=== PATIENT | female | born 1960 | race Caucasian/White ===

== ENCOUNTER 2025-05-18 12:42 | Emergency (ER) | payer OTHER, SELFPAY ==
[2025-05-18 12:45] VITALS: BP 153/94
[2025-05-18] MEDS: MOTRIN 600 MG PO (13:36)
--- NOTE | 2025-05-18 13:50 | ED.MUSCINJ ---
HPI-Injury
General
Chief Complaint: Musculo-Skeletal Complaint
Time Seen by Provider: 05/18/25 13:23
History of Present Illness-Injury
Initial Injury comments:
Patient is a 64-year-old woman presenting to the emergency department with ankle pain. Patient states that she was sitting in a desk chair with her legs wrapped around the base. The chair slipped forward and her right leg was twisted under the
chair. She not hit her head or lose consciousness. She was unable to stand after the fall given pain to the ankle and the knee. No numbness tingling. No weakness. No pain elsewhere.
Past History
Past History
ED Past Medical History: None
ED Past Surgical History: None
Patient has exhibited threatening behavior?: No
Social History
Living: with family
Employment: Employed
Phy Exam
Physical Exam
Physical Exam:
GENERAL: in no acute distress
HEENT: normocephalic, extraocular movements intact, moist oral mucosa
NECK: normal inspection
RESPIRATORY: no respiratory distress, clear to auscultation bilaterally
CARDIOVASCULAR: regular rate and rhythm
EXTREMITIES: Right lower extremity with tenderness to the medial aspect of the knee as well as the medial malleolus with mild swelling, 2+ distal pulse, normal sensation
NEUROLOGIC: awake and alert, moves all extremities
SKIN: warm
Injury Course
Orders/Labs/Results
Orders:
Orders
05/18/25 12:44
Ankle, Right 3 view CR [CR Ankle - Right Min 3 Views *] Urgent
Comment:
Reason For Exam: injury
05/18/25 13:30
Ibuprofen [Motrin] 600 mg PO NOW STA
CR Knee- Right 4 Or More View* Urgent
Comment:
Reason For Exam: medial tenderness
Procedures
Splint Check
Splint checked by provider?: Yes
Circulation/Movement/Sensation post splint application: brisk cap refill and full sensation
MDM/Problems Addressed
Differential Diagnosis Includes:
Patient is a 64-year-old woman presenting to the emergency department with ankle pain after twisting her ankle and falling. Vitals are notable for hypertension and exam does show tenderness at the medial malleolus of the right leg as well as the
right medial compartment of the knee. Concern for fibular fracture versus knee fracture versus ligamentous injury. X-ray obtained of the ankle prior to my evaluation is consistent with a spiral distal fibular fracture. Per the official read there
could be component of ligamentous injury as well. Will obtain x-ray of the knee. Will pain control.
*Pulse Oximetry
SaO2: 99
Oxygen Mode of Delivery: Room air
Patient hypoxic: no
*Critical Care Note
Total Time (30-74mins, 75-104mins- exclusive of procedures): Not Applicable
Update Note
Update Note:
X-ray of the knee per my interpretation note with no acute fracture. Will place patient in both sugar-tong and posterior short splint. Patient advised to be nonweightbearing. Patient not successful with crutches but able to walk with walker.
Will discharge with orthopedic follow-up.
ED Attending Note
-
Portions of this chart may have been created with voice recognition software.� Occasional wrong word or��sound alike� substitutions may have occurred due to the inherent limitations of voice recognition software.
Discharge Plan
Departure
Patient Disposition: Home (Routine Discharge)
Date of Disposition: 05/18/25
Time of Disposition: 15:11
Patient with high blood pressure during this ER visit?: No
Discharge Problem:
Closed right fibular fracture
Instructions: Ankle Fracture (DC), Splint Care
Referrals:
Garth Domínguez MD [Family Provider, Family Practice]
Naveed Tobin MD [Active, Orthopedics]
Activity Restrictions/Additional Instructions:
You were seen in the Emergency Department today for an ankle fracture. While you were here we placed you in a splint. Please do not bear any weight on that leg. Please call orthopedic surgery for evaluation. If you develop numbness tingling
worsening pain or skin changes to the right leg please loosen your splint. If symptoms persist please immediately come to the emergency department.
We would like for you to follow up with your primary care physician for further evaluation. If you experience fever, worsening of your symptoms, or develop any other new or concerning symptoms, please return to the Emergency Department immediately.
Please see the attached sheet for additional information.
Interventions
Interventions:
*Risk Screen - Suicide Last Done: 05/18/25 12:45
*General Assessment Last Done: 05/18/25 12:45
*Neglect/Abuse Screening Last Done: 05/18/25 12:45
*ED COVID-19 Vaccine History Last Done: 05/18/25 12:45
ED-Musculoskeletal Assessment Last Done: 05/18/25 13:04
Discharge Date and Time
Print Language: JAPANESE
== END 2025-05-18 15:38 | disposition home or self-care (01) ==
LOC: EMR 12:42
PROVIDERS: EMERGENCY PHYSICIAN Student in an Organized Health Care Education/Training Program; FAMILY PHYSICIAN Family Medicine
DX: S82.444A Nondisplaced spiral fracture of shaft of right fibula, initial encounter for closed fracture (principal); X50.1XXA Overexertion from prolonged static or awkward postures, initial encounter
CPT/HCPCS: 99283; 29515; 73564; 73610